=== PATIENT | male | born 1995 | race Two or more races ===

== ENCOUNTER 2021-02-09 01:47 | Emergency (ER) | payer OTHER ==
[~2021-02-09] VITALS: Ht 175.3 cm; Wt 65.8 kg
[2021-02-09] MEDS ORDERED: diphenhdrAMINE HCL 50 MG/1 ML VL IV ONE (02:00)
[2021-02-09] MEDS ORDERED: FAMOTIDINE (10MG/ML) 2ML VL IV ONE (02:00)
[2021-02-09] MEDS ORDERED: DexAMETHasone SOD PHOS 10MG/1ML VIAL INJ IV ONE (02:00)
[2021-02-09 02:05] VITALS: BP 128/85
== END 2021-02-09 04:39 | disposition left against medical advice (07) ==
LOC: ER 01:47
DX: T78.40XA Allergy, unspecified, initial encounter (principal); Z53.21 Procedure and treatment not carried out due to patient leaving prior to being seen by health care provider; X58.XXXA Exposure to other specified factors, initial encounter
CPT/HCPCS: J1100; J1200; J3490